=== PATIENT | female | born 1995 | race Two or more races ===

== ENCOUNTER 2017-12-30 08:34 | Outpatient (CLI) | payer OTHER | END 2017-12-30 08:47 | disposition home or self-care (01) | LOC: SONOGRAMA 08:34 | DX: N64.4 Mastodynia (principal) ==

== ENCOUNTER 2018-12-24 21:29 | Emergency (ER) | payer OTHER ==
[~2018-12-24] VITALS: Ht 162.6 cm; Wt 84.8 kg
== END 2018-12-24 22:57 | disposition home or self-care (01) ==
LOC: ER 21:29
DX: R07.89 Other chest pain (principal)

== ENCOUNTER 2019-02-07 23:39 | Emergency (ER) | payer OTHER ==
[~2019-02-07] VITALS: Ht 162.6 cm; Wt 83.9 kg
[2019-02-08] MEDS ORDERED: CONCEPT DHA CA1 EACH PO (03:22)
== END 2019-02-08 03:29 | disposition home or self-care (01) ==
LOC: ER 23:39
DX: D25.9 Leiomyoma of uterus, unspecified (principal); N91.2 Amenorrhea, unspecified; R11.11 Vomiting without nausea

== ENCOUNTER 2019-03-21 17:46 | Emergency (ER) | payer OTHER ==
[~2019-03-21] VITALS: Ht 162.6 cm; Wt 83.9 kg
[~2019-03-21 17:46] MED LIST: CONCEPT DHA CA1 EACH PO
== END 2019-03-21 21:00 | disposition home or self-care (01) ==
LOC: ER 17:46
DX: O26.891 Other specified pregnancy related conditions, first trimester (principal); O00.01 Abdominal pregnancy with intrauterine pregnancy; R10.2 Pelvic and perineal pain; O26.851 Spotting complicating pregnancy, first trimester

== ENCOUNTER → 2021-07-20 | Emergency (ER) | payer OTHER | END | disposition left against medical advice (07) | LOC: ER 19:46 | DX: Z53.21 Procedure and treatment not carried out due to patient leaving prior to being seen by health care provider (principal) ==